=== PATIENT | female | born 1965 | race Caucasian/White ===

== ENCOUNTER 2020-07-19 11:07 | Outpatient (REF) | payer OTHER, SELFPAY ==
--- NOTE | 2020-07-19 11:15 | CT_ITS ---
EXAMINATION: CT HEAD WITHOUT CONTRAST CLINICAL INFORMATION: Daily persistent headache. COMPARISON: CT scan of the head 02/09/2017. TECHNIQUE: Contiguous axial imaging was performed from the skull base to vertex without intravenous administration of contrast. This CT examination was performed using dose optimization techniques as appropriate, variously including the following: *Automated exposure control *Adjustment of mA and/or kV according to patient size (this includes techniques or standardized protocols for targeted exams where dose is matched to indication/reason for exam; i.e. extremities or head) *Use of iterative reconstruction technique DLP: 788 mGy-cm FINDINGS: There is gliosis and encephalomalacia in the left external capsule/subinsular cortex, consistent with sequelae of prior left MCA infarct. There is a lacunar infarct in the left basal ganglia which has evolved compared to prior imaging. There is ex-vacuo dilatation of the anterior body and anterior horn of the left lateral ventricle adjacent to the chronic ischemic areas. There is no evidence of acute intracranial hemorrhage or territorial infarction. No abnormal mass effect or midline shift is seen. Elsewhere, zhu to white matter differentiation is well preserved. No extra-axial fluid collections are identified. There has been interval increase in prominence of the sulci in the bilateral cerebellar hemispheres and vermis. The osseous structures and soft tissues are normal. The mastoid air cells and paranasal sinuses are well aerated. IMPRESSION: 1. There are no acute bleeds or territorial infarcts. No masses are demonstrated. The paranasal sinuses and mastoid air cells are well-aerated. There has been further volume loss in the cerebellar hemispheres and vermis. 2. There are sequelae of a left MCA territory infarct with gliosis and encephalomalacia in the left basal ganglia and subinsular cortex, with ex vacuo dilatation of the body of the left lateral ventricle.
== END 2020-07-19 11:08 | disposition home or self-care (01) ==
LOC: HO.CT 11:07
PROVIDERS: PCP Internal Medicine; Visit Provider Internal Medicine
DX: G44.52 New daily persistent headache (NDPH) (principal); Z86.73 Personal history of transient ischemic attack (TIA), and cerebral infarction without residual deficits
CPT/HCPCS: 70450

== ENCOUNTER → 2020-07-27 10:32 | Outpatient (BNVA) | payer OTHER, SELFPAY | PROVIDERS: PCP Internal Medicine; Visit Provider Internal Medicine | DX: Z95.2 Presence of prosthetic heart valve (principal); Z51.81 Encounter for therapeutic drug level monitoring; Z79.01 Long term (current) use of anticoagulants | CPT/HCPCS: 85610 ==

== ENCOUNTER → 2020-08-11 11:10 | Outpatient (BNVA) | payer OTHER, SELFPAY | PROVIDERS: PCP Internal Medicine; Referring Provider Internal Medicine; Visit Provider Student in an Organized Health Care Education/Training Program | DX: R76.8 Other specified abnormal immunological findings in serum (principal); Z82.61 Family history of arthritis | CPT/HCPCS: 99202 ==

== ENCOUNTER 2020-08-23 10:35 | Outpatient (REF) | payer OTHER, SELFPAY ==
--- NOTE | 2020-08-23 11:03 | XR_ITS ---
EXAMINATION: XR LUMBOSACRAL SPINE CLINICAL INFORMATION: Abnormal serology COMPARISON: None TECHNIQUE: Three views of the lumbosacral spine. FINDINGS: Mild leftward curvature of the spine. On the lateral projection, there is normal alignment. The lumbar vertebral body heights are maintained. No evidence of compression deformities. Moderate disc degeneration at L5/S1. There are endplate osteophytes at multiple levels in the lumbar spine. Multilevel facet degeneration. Visualized sacrum is intact. SI joints are intact. There are disc degenerative changes in the visualized lower thoracic spine. Apparent superior endplate depression of T12, with sclerosis, and adjacent disc degenerative changes, suboptimally evaluated at the upper margin in the [id number]. XR/XR lumbar spine 2-3V IMPRESSION: Lumbar spondylosis. Moderate disc degeneration at L5-S1. No evidence of acute osseous abnormality. Disc degenerative changes in the visualized lower thoracic spine. Question superior endplate depression of T12, suboptimally evaluated. Dedicated thoracic spine views for further evaluation as clinically warranted.
--- NOTE | 2020-08-23 11:03 | XR_ITS ---
EXAMINATION: X-RAY BILATERAL HANDS CLINICAL INFORMATION: Abnormal immunologic findings in the serum. COMPARISON: None TECHNIQUE: Right hand 3 views. Left hand 4 views. FINDINGS: In bilateral hands, there is normal alignment. Joint spaces are maintained. No fracture or dislocation. Questionable subtle erosion of the distal ulnar aspect of the right 3rd middle phalanx. No abnormal soft tissue calcification. Carpal row alignment is maintained. XR/XR hand wrist RT IMPRESSION: Questionable subtle erosion in the distal aspect right 3rd middle phalanx. Otherwise unremarkable study.
--- NOTE | 2020-08-23 11:03 | XR_ITS ---
EXAMINATION: X-RAY BILATERAL HANDS CLINICAL INFORMATION: Abnormal immunologic findings in the serum. COMPARISON: None TECHNIQUE: Right hand 3 views. Left hand 4 views. FINDINGS: In bilateral hands, there is normal alignment. Joint spaces are maintained. No fracture or dislocation. Questionable subtle erosion of the distal ulnar aspect of the right 3rd middle phalanx. No abnormal soft tissue calcification. Carpal row alignment is maintained. XR/XR hand wrist LT IMPRESSION: Questionable subtle erosion in the distal aspect right 3rd middle phalanx. Otherwise unremarkable study.
[2020-08-23 12:25] LABS: Rheumatoid Factor < 15.0 IU/mL (<15.0)
[2020-08-23 13:00] LABS: Erythrocyte Sedimentation Rate 27 MM/HR (0-20)
[2020-08-24 09:37] LABS: Thyroglobulin Antibodies <1 IU/mL (< or = 1); Thyroid Peroxidase Antibodies <1 IU/mL (<9)
[2020-08-24 12:21] LABS: Complement C3 160 mg/dL (83-193)
[2020-08-24 12:47] LABS: Anti DNA DS Antibody <1 IU/mL; Antibody to SS-A Antigen <1.0 NEG AI (<1.0 NEG); Antibody to SS-B Antigen <1.0 NEG AI (<1.0 NEG); SM/Ribonucleoprotein Ab <1.0 NEG AI (<1.0 NEG); Smith Protein <1.0 NEG AI (<1.0 NEG)
[2020-08-25 00:27] LABS: Anti Nuclear Antibody Screen POSITIVE (NEGATIVE)
[2020-08-25 14:47] LABS: Cyclic Citrullinated Peptide 18 UNITS
== END 2020-08-23 10:36 | disposition home or self-care (01) ==
LOC: HO.LAB 10:35
PROVIDERS: PCP Internal Medicine; Visit Provider Student in an Organized Health Care Education/Training Program
DX: R76.8 Other specified abnormal immunological findings in serum (principal)
CPT/HCPCS: 36415; 72100; 73110; 73130; 85652; 86038; 86039; 86140; 86160; 86200; 86225; 86235; 86376; 86431; 86800

== ENCOUNTER → 2020-08-24 10:33 | Outpatient (BNVA) | payer OTHER, SELFPAY | PROVIDERS: PCP Internal Medicine; Visit Provider Internal Medicine | DX: Z95.2 Presence of prosthetic heart valve (principal); Z51.81 Encounter for therapeutic drug level monitoring; Z79.01 Long term (current) use of anticoagulants | CPT/HCPCS: 85610; 99211 ==

== ENCOUNTER → 2020-08-30 10:10 | Outpatient (BNVA) | payer OTHER, SELFPAY | PROVIDERS: PCP Internal Medicine; Visit Provider Anesthesiology | DX: M79.7 Fibromyalgia (principal); R76.8 Other specified abnormal immunological findings in serum; Z86.73 Personal history of transient ischemic attack (TIA), and cerebral infarction without residual deficits; Z95.2 Presence of prosthetic heart valve; Z79.01 Long term (current) use of anticoagulants; Z79.899 Other long term (current) drug therapy | CPT/HCPCS: 99202 ==

== ENCOUNTER 2020-09-18 10:45 | Outpatient (REF) | payer OTHER, SELFPAY ==
--- NOTE | 2020-09-18 12:13 | XR_ITS ---
EXAMINATION: XR CHEST CLINICAL INFORMATION: Heart failure COMPARISON: Previous chest x-rays most recent October 2018 TECHNIQUE: 2 views of the chest were obtained. FINDINGS: The cardiac silhouette does not appear enlarged. There are median sternotomy wires and prosthetic aortic valve ring. Hilar and mediastinal contours are unremarkable. The lungs are clear. There is no pleural effusion. There are degenerative changes of the spine. XR/XR chest 2V IMPRESSION: Stable postsurgical changes. No evidence of CHF.
== END 2020-09-18 10:46 | disposition home or self-care (01) ==
LOC: HO.XRAY 10:45
PROVIDERS: Absent Provider Student in an Organized Health Care Education/Training Program; PCP Internal Medicine; Referring Provider Internal Medicine; Visit Provider Internal Medicine Cardiovascular Disease
DX: I50.30 Unspecified diastolic (congestive) heart failure (principal); I11.0 Hypertensive heart disease with heart failure; T82.09XA Other mechanical complication of heart valve prosthesis, initial encounter; Z95.2 Presence of prosthetic heart valve
CPT/HCPCS: 71046; 93005; 99212

== ENCOUNTER → 2020-09-21 10:05 | Outpatient (BNVA) | payer OTHER, SELFPAY | PROVIDERS: PCP Internal Medicine; Referring Provider Internal Medicine; Visit Provider Internal Medicine | DX: Z95.2 Presence of prosthetic heart valve (principal); Z51.81 Encounter for therapeutic drug level monitoring; Z79.01 Long term (current) use of anticoagulants | CPT/HCPCS: 85610; 99211 ==

== ENCOUNTER 2020-09-21 12:45 | Emergency (ER) | payer OTHER, SELFPAY ==
[2020-09-21 14:00] VITALS: BP 139/66; PULSE 61; RESP 16; TEMP 36.6; O2SAT 98
[2020-09-21 14:21] VITALS: BP 141/67; PULSE 67; RESP 18; TEMP 36.6; O2SAT 97; BMI 32.9
--- NOTE | 2020-09-21 14:29 | ED.ABDPAIN ---
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 like sensation in the mid abdomen down to the periumbilical region. There is no associated fever, chest pain, shortness of breath no nausea vomiting or diarrhea. She did call her primary care doctor and was advised to come to emergency room for further evaluation. Last INR today was 2.1. MD elicited complaint: abdominal pain Pertinent past history: none Onset (ago): week(s) (2) Pain Consistency: constant Severity: moderate Quality: aching Radiation: none Exacerbating factors: nothing Relieving factors: nothing Related Data Home Medications Medication Instructions Recorded Confirmed atorvastatin 80 mg tablet 80 mg PO DAILY 07/10/20 09/21/20 bupropion HCl 100 mg tablet,12 hr 0 mg PO 07/10/20 09/21/20 sustained-release cholecalciferol (vitamin D3) 125 125 mcg PO DAILY 07/10/20 09/21/20 mcg (5,000 unit) capsule cyanocobalamin (vitamin B-12) 1,000 mcg PO DAILY 07/10/20 09/21/20 1,000 mcg tablet ferrous sulfate 325 mg (65 mg 325 mg PO DAILY 07/10/20 09/21/20 iron) tablet furosemide 40 mg tablet 40 mg PO DAILY 07/10/20 09/21/20 lisinopril 10 mg tablet 10 mg PO DAILY 07/10/20 09/21/20 metoprolol succinate 100 mg 100 mg PO DAILY 07/10/20 09/21/20 tablet,extended release 24 hr sumatriptan succinate 50 mg tablet 0 mg PO 07/10/20 09/21/20 Previous Rx's Medication Instructions Recorded hydralazine 10 mg tablet 10 mg PO TID 90 Days #270 tab 07/16/20 nystatin 100,000 unit/gram topical 1 applic TOPICAL DAILY 30 Days #30 07/16/20 cream g blood sugar diagnostic #70 ea 07/18/20 aspirin 81 mg tablet,delayed 81 mg PO DAILY 90 Days #90 tab 07/21/20 release warfarin 2.5 mg tablet 2.5 mg PO DAILY #90 tab 07/27/20 lancets 28 gauge #100 ea 07/28/20 lancets 28 gauge 1 gauge TOPICAL BID 90 Days #200 08/08/20 cap metformin 500 mg tablet 500 mg PO BID #180 tab 08/14/20 albuterol sulfate 90 mcg/actuation 2 puff INHALATION Q4-6H PRN #18 g 08/26/20 aerosol inhaler doxepin 100 mg capsule 100 mg PO BEDTIME #90 cap 08/26/20 gabapentin 800 mg tablet 800 mg PO TID 30 Days #90 tab 08/30/20 hydroxyzine HCl 25 mg tablet 25 mg PO BID PRN #60 tab 08/30/20 clonazepam 1 mg tablet 1 mg PO BID PRN #60 tab 09/09/20 escitalopram oxalate 10 mg tablet 10 mg PO DAILY #90 tab 09/15/20 polyethylene glycol 3350 [Miralax] 17 g PO DAILY PRN #238 g 09/21/20 Allergies Allergy/AdvReac Type Severity Reaction Status Date / Time No Known Allergies Allergy Verified 09/21/20 11:36 [No Known Allergies*] Review of Systems Review of Systems Constitutional: No Weight loss, No Fever, No Chills, No Night Sweats, No Fatigue, No Malaise ENT/Mouth: No Hearing loss, No Ear Pain, No Nasal Congestion, No Sinus Pain, No Hoarseness, No sore throat, No Rhinorrhea, No Swallowing Difficulty Eyes: No Eye Pain, No Swelling, No Redness, No Foreign Body, No Discharge, No Vision Changes Cardiovascular: No Chest Pain, No SOB, No Dyspnea on Exertion, No Orthopnea, No Edema, No Palpitations Respiratory: No Cough, No Sputum, No Wheezing, No Smoke Exposure, No Dyspnea Gastrointestinal: No Nausea, No Vomiting, No Diarrhea, No Constipation, + abdominal Pain as noted in HPI, No Hematochezia, No Melena Genitourinary: no irregular bleeding, No Dysuria, No Urinary Frequency, No Hematuria, No Urinary Incontinence, No Urgency, No Flank Pain, No Urinary Flow Changes, No Hesitancy Musculoskeletal: No joint pain, No Myalgias, No Joint Swelling Skin: No Skin Lesions, No rash Neuro: No Weakness, No Numbness, No Paresthesias, No Loss of Consciousness, No Dizziness, No Headache Psych: No Social Issues Heme/Lymph: No Bruising, No Bleeding,No Lymphadenopathy Endocrine: No Polyuria, No Polydipsia, No Temperature Intolerance Yes all other systems are reviewed and are negative Physical Exam Vital Signs: Vital Signs: Last Vital Signs Temp 98 F 09/21/20 17:04 Pulse 72 09/21/20 17:04 Resp 14 09/21/20 17:04 BP 133/69 09/21/20 17:04 Pulse Ox 99 09/21/20 17:04 Body Mass Index 32.9 Reviewed Const: General: cooperative and healthy appearing; No acute distress or intoxicated appearing Nutritional Appearance: average body habitus Orientation/consciousness: patient oriented x3 HENMT: Head: Yes normal to inspection Ears: hearing grossly normal bilaterally Eyes: General: appearance normal, both eyes and all related structures Visual Goldsmtih: normal visual goldsmith by confrontation Neck: Neck: Yes normal visual inspection and No tender Thyroid: Thyroid normal Chest: Chest palpation & inspection: normal inspection of the chest Breast/axilla inspection: normal inspection of the breasts Resp: Effort & Inspection: normal respiratory effort Auscultation: clear to auscultation bilaterally Cardio: Jugular venous distension: no JVD Rhythm: regular rhythm Heart sounds: S1 normal heart sound present and S2 normal heart sound present GI: Inspection: Yes normal to inspection Palpation (GI): Firmness to palpation present (GI), Tenderness to palpation present (GI), Palpable mass present (Superior to the umbilicus bulging mass she flex c/w fat containing hernia) and no pulsatile masses Percussion: Yes normal to percussion Auscultation: normal bowel sounds : General: Yes no CVA tenderness Back/Spine/Pelvis: Back: no CVA tenderness Skin: General skin exam: no rashes or lesions noted Neuro: General: patient oriented x3 Extrem: General: Yes normal to inspection Course Course Course Narrative: Labs overall stable. No leukocytosis. H&H at baseline. Chemistries without significant derangement. UA noninfected. CT of the abdomen pelvis shows moderate stool burden otherwise no acute intra-abdominal process/obstructive/infectious pathology. Patient in fact has been eating CHAINels without my knowledge. Her exam remains stable. Will be discharged home with prescription of MiraLax/follow up with GP. Patient agreeable. Stable for discharge. MDM - Abdominal Pain Differential Diagnosis Differential diagnosis: Likely abdominal pain (Abdominal hernia, strangulated/incarcerated hernia ), constipation and small bowel obstruction; Unlikely aortic dissection, acute appendicitis, bowel perforation, calculus of kidney, diverticulitis, mesenteric ischemia, pancreatitis, peptic ulcer disease and renal colic Medical Records Attestation: I reviewed the patient's medical records. Lab Data Attestation: I reviewed the patient's lab results. Result diagrams: 09/21/20 15:07 09/21/20 15:06 Labs: Lab Results 09/21/20 09/21/20 Range/Units 15:06 15:07 WBC 10.5 (4.8-10.8) X10*3/uL RBC 3.97 L (4.20-5.50) X10*6/uL Hgb 11.7 L (12.0-16.0) g/dl Hct 36.2 L (37-47) % MCV 91.2 (80-98) fL MCH 29.5 (27.0-33.0) pg MCHC 32.3 (31.0-35.0) g/dl RDW 13.5 (11.0-16.0) % Plt Count 374 (160-400) X10*3/uL MPV 10.0 (9.4-12.3) fL Immature Gran % (Auto) 0.3 (0.0-0.4) % Neut % (Auto) 63.4 (45-73) % Lymph % (Auto) 26.4 (20-40) % Boundary % (Auto) 6.2 (2-11) % Eos % (Auto) 3.1 (0-4) % Baso % (Auto) 0.6 (0-2) % Lymph # (Auto) 2.8 (1.2-4.9) X10*3/uL Boundary # (Auto) 0.7 (0.1-1.2) X10*3/uL Eos # (Auto) 0.3 (0.0-0.4) X10*3/uL Baso # (Auto) 0.1 (0.0-0.2) X10*3/uL Abs Immat Gran (auto) 0.03 (0.00-0.03) X10*3/uL Absolute Neuts (auto) 6.7 (2.0-8.3) X10*3/uL Absolute Nucleated RBC 0.000 (0.0-0.012) X10*3/uL Nucleated RBC % (auto) 0.0 (0.0-0.2) /100WBC Sodium 137 (135-145) mmol/L Potassium 4.5 (3.3-5.1) mmol/l Chloride 98 (96-108) mmol/L Carbon Dioxide 25 (22-29) mmol/L Anion Gap 19 (12-20) BUN 19 H (9-16) mg/dL Creatinine 1.33 (0.5-1.4) mg/dL Estim Creat Clear Calc 49.7 Estimated GFR 42 Random Glucose 124 H (60-115) mg/dL Calcium 9.7 (8.4-10.2) mg/dL Total Bilirubin 0.5 (0.0-1.0) mg/dL AST 38 H (5-31) U/L ALT 50 H (0-31) U/L Alkaline Phosphatase 111 (39-117) U/L Total Protein 7.7 (6.5-8.0) g/dL Albumin 4.5 (3.5-5.0) g/dL Imaging Data Abdominal/pelvis CT with IV contrast: Radiologist's impression: [place] [id number] CT Scan Report Signed Patient: Nomi Smith#: [id number] : 1965Acct:[id number] Age/Sex: 55 / FADM Date: 09/21/20 Loc: HO.ED Attending Dr: Ordering Physician: Marco Randhawa NP Date of Service: 09/21/20 Procedure(s): CT abdomen pelvis w con Accession Number(s): [id number] cc: Marco Randhawa NP~ EXAMINATION: CT ABDOMEN AND PELVIS WITH CONTRAST CLINICAL INFORMATION: Pain COMPARISON: 04/13/2020 and 10/19/2016 TECHNIQUE: Multidetector volumetric images were obtained from the superior aspect of the liver through the pubic symphysis following administration 85 mL of Omnipaque 350 intravenous contrast. Sagittal and coronal reformatted images were obtained on the technologist's workstation. Oral contrast: No This CT examination was performed using dose optimization techniques as appropriate, variously including the following: *Automated exposure control *Adjustment of mA and/or kV according to patient size (this includes techniques or standardized protocols for targeted exams where dose is matched to indication/reason for exam; i.e. extremities or head) *Use of iterative reconstruction technique DLP: 625 mGy-cm FINDINGS: LUNG BASES: The visualized lung bases are unremarkable. LIVER, GALLBLADDER, AND BILIARY TREE: The liver is normal in size, shape, and attenuation. No focal hepatic lesion or biliary ductal dilatation is present. Gallbladder is surgically absent. PANCREAS: Unremarkable. SPLEEN: Unremarkable. ADRENAL GLANDS: The small 1 cm left adrenal adenoma is unchanged from the prior CT. A subtle subcentimeter fat density 5 mm adrenal myelolipoma is suspected at the right adrenal gland. KIDNEYS AND URETERS: As noted previously, there is abnormal atrophy of the left kidney with associated cortical thinning diffusely. Multiple subcentimeter renal cysts are identified. At the lateral aspect of the interpolar region of the left kidney, there is a 7 mm fat density lesion which is most compatible with a small angiomyolipoma. No hydronephrosis or nephrolithiasis. Ureters normal in course and caliber. BLADDER: Unremarkable. GASTROINTESTINAL TRACT: There is a moderate volume stool throughout the colon. No bowel wall thickening, surrounding inflammatory changes, or bowel dilatation are identified. Appendix is normal. No intraperitoneal free fluid or free air. ABDOMINAL WALL: No significant hernia is appreciated. LYMPH NODES: Normal. VASCULAR: Vascular calcifications are again seen within the abdominal aorta and iliac arteries. No aneurysmal dilatation. PELVIC VISCERA: The uterus is retroverted. No focal abnormalities are identified. No adnexal lesions are appreciated. OSSEOUS STRUCTURES: There is mild left convex thoracic scoliosis with multilevel degenerative spondylosis, most notable at L5-S1. Multiple ossific posterior disc protrusions are evident in the lumbar spine, potentially contribute to central canal stenoses. Mild osteoarthritis in the hips and SI joints. No acute osseous findings. CT/CT abdomen pelvis w con IMPRESSION: 1. No acute intra-abdominal or intrapelvic abnormalities are identified. 2. Unchanged 1 cm left adrenal adenoma. 3. Left renal atrophy, unchanged. No acute renal abnormalities. Unchanged 7 mm left renal angiomyolipoma. 4. Moderate amount of stool throughout the colon. Dictated By:CHON DELEON MD Signed By:<Electronically signed by CHON DELEON MD in OV>09/21/20 1715 DD/ 1428 TD/TT: Staff Air Tactical Officer: HOLGER Discharge Plan Discharge Clinical Impression: Constipation Patient Disposition: Home, Self-Care Instructions: Constipation (ED) Prescriptions: New polyethylene glycol 3350 [Miralax] 17 gram/dose powder 17 g PO DAILY PRN (Reason: constipation) Qty: 238 RF: 0 No Action nystatin 100,000 unit/gram cream 1 applic topical DAILY 30 Days Qty: 30 RF: 1 hydralazine 10 mg tablet 10 mg PO TID 90 Days Qty: 270 RF: 3 (DME) blood sugar diagnostic Strip See Rx Instructions strip Not Applicable BID Qty: 70 RF: 11 aspirin [Adult Low Dose Aspirin] 81 mg tablet,delayed release (DR/EC) 81 mg PO DAILY 90 Days Qty: 90 RF: 0 (DME) lancets [FreeStyle Lancets] 28 gauge misc See Rx Instructions .ROUTE .MEDSUPPLY Qty: 100 RF: 0 lancets [FreeStyle Lancets] 28 gauge misc 1 gauge topical BID 90 Days Qty: 200 RF: 4 metformin 500 mg tablet 500 mg PO BID Qty: 180 RF: 1 doxepin 100 mg capsule 100 mg PO BEDTIME Qty: 90 RF: 1 albuterol sulfate 90 mcg/actuation HFA aerosol inhaler 2 puff inhalation Q4-6H PRN (Reason: shortness of breath or wheezing) Qty: 18 RF: 0 clonazepam 1 mg tablet 1 mg PO BID PRN (Reason: anxiety) Qty: 60 RF: 0 escitalopram oxalate 10 mg tablet 10 mg PO DAILY Qty: 90 RF: 1 gabapentin 800 mg tablet 800 mg PO TID 30 Days Qty: 90 RF: 12 hydroxyzine HCl 25 mg tablet 25 mg PO BID PRN (Reason: itching) Qty: 60 RF: 5 atorvastatin 80 mg tablet 80 mg PO DAILY RF: 0 furosemide 40 mg tablet 40 mg PO DAILY RF: 0 metoprolol succinate 100 mg tablet extended release 24 hr 100 mg PO DAILY RF: 0 sumatriptan succinate 50 mg tablet 0 mg PO RF: 0 bupropion HCl 100 mg tablet sustained-release 12 hr 0 mg PO RF: 0 lisinopril 10 mg tablet 10 mg PO DAILY RF: 0 ferrous sulfate 325 mg (65 mg iron) tablet 325 mg PO DAILY RF: 0 cholecalciferol (vitamin D3) 125 mcg (5,000 unit) capsule 125 mcg PO DAILY RF: 0 cyanocobalamin (vitamin B-12) 1,000 mcg tablet 1,000 mcg PO DAILY RF: 0 warfarin 2.5 mg tablet 2.5 mg PO DAILY Qty: 90 RF: 0 Referrals: Sonja Freeman MD [Primary Care Provider] - 1 week [facility] Past Medical History Medical History (HFpEF) heart failure with preserved ejection fraction SONJA positive Anemia of chronic disease CVA (cerebral vascular accident) Diabetes mellitus Essential hypertension Fibromyalgia Fibromyalgia Intertrigo Long-term use of aspirin therapy Mixed hyperlipidemia Prosthetic valve dysfunction Secondary hyperparathyroidism Surgical History Heart valve replaced S/P AVR Family History Family History Father CVD (cardiovascular disease) Mother Diabetes HTN (hypertension) Sister Stomach cancer Social History Social History Household Members: Family Alcohol intake: never Smoking Status: Former smoker Use of substances other than those prescribed or required for medical reasons: No Advance Directives: No Advance Directives Information Provided: Yes
[2020-09-21 15:12] LABS: MANUAL DIFF FLAG NO
[2020-09-21 15:16] LABS: Basophils Absolute Auto 0.1 X10*3/uL (0.0-0.2); Basophils Percent Auto 0.6 % (0-2); Eosinophils Absolute Auto 0.3 X10*3/uL (0.0-0.4); Eosinophils Percent Auto 3.1 % (0-4); Hematocrit 36.2 % (37-47); Hemoglobin 11.7 g/dl (12.0-16.0); Imm Gran Abs Auto 0.03 X10*3/uL (0.00-0.03); Imm Gran Pct Auto 0.3 % (0.0-0.4); Lymphocytes Absolute Auto 2.8 X10*3/uL (1.2-4.9); Lymphocytes Percent Auto 26.4 % (20-40); Mean Corpuscular HGB Conc 32.3 g/dl (31.0-35.0); Mean Corpuscular Hemoglobin 29.5 pg (27.0-33.0); Mean Corpuscular Volume 91.2 fL (80-98); Monocytes Absolute Auto 0.7 X10*3/uL (0.1-1.2); Monocytes Percent Auto 6.2 % (2-11); Neutrophils Absolute Auto 6.7 X10*3/uL (2.0-8.3); Neutrophils Percent Auto 63.4 % (45-73); Platelet Count 374 X10*3/uL (160-400); Red Blood Count 3.97 X10*6/uL (4.20-5.50); Red Cell Distribution Width 13.5 % (11.0-16.0); White Blood Count 10.5 X10*3/uL (4.8-10.8)
[2020-09-21] MEDS: 0.9 % Sodium Chloride 1,000 ML 999 ML IV (15:33)
[2020-09-21 15:46] LABS: Alanine Aminotransferase 50 U/L (0-31); Albumin Level 4.5 g/dL (3.5-5.0); Alkaline Phosphatase 111 U/L (39-117); Anion Gap 19 (12-20); Aspartate Amino Transferase 38 U/L (5-31); Bilirubin Total 0.5 mg/dL (0.0-1.0); Blood Urea Nitrogen 19 mg/dL (9-16); Calcium 9.7 mg/dL (8.4-10.2); Carbon Dioxide 25 mmol/L (22-29); Chloride 98 mmol/L (96-108); Creatinine Clr Calc Pharmacy 49.7; Estimated Glomerular Filt Rate 42; Glucose Random 124 mg/dL (60-115); Potassium 4.5 mmol/l (3.3-5.1); Sodium 137 mmol/L (135-145); Total Protein 7.7 g/dL (6.5-8.0)
[2020-09-21] MEDS: iohexoL 350 MG/ML 100 ML INFUS..BTL IV (16:47)
[2020-09-21 17:04] VITALS: BP 133/69; PULSE 72; RESP 14; TEMP 36.6; O2SAT 99
[2020-09-21 17:43] LABS: Glucose Urine UA NEG (NEG); Leukocyte Esterase Urine NEG (NEG); Nitrite Urine NEG (NEG); Specific Gravity - Urine 1.015 (1.005-1.025); Urine Blood NEG (NEG); Urine Ketones NEG (NEG); Urine Protein NEG (NEG-TRACE)
[2020-09-21 17:44] LABS: Color Urine YELLOW
[2020-09-21 17:45] LABS: Appearance Urine CLEAR
[2020-09-21 17:54] LABS: Bacteria Urine TRACE /LPF; RBC Urine 0 /HPF (0); Squamous Epithelial Cell Urine 1+ /LPF; WBC Urine 0 /HPF (0-4)
== END 2020-09-21 18:22 | disposition home or self-care (01) ==
PROVIDERS: Nurse Practitioner Primary Care; Emergency Provider Internal Medicine; PCP Internal Medicine
DX: K59.00 Constipation, unspecified (principal); E11.9 Type 2 diabetes mellitus without complications; I10 Essential (primary) hypertension; Z79.82 Long term (current) use of aspirin
CPT/HCPCS: 36415; 74177; 80053; 81001; 85025; 99284; Q9967

== ENCOUNTER → 2020-10-18 09:27 | Outpatient (REF) | payer OTHER, SELFPAY ==
--- NOTE | 2020-10-18 09:30 | CA_ITS ---
Transthoracic Echocardiogram Patient (Last, First, Middle): Nomi Smith, Gender: Female Date of : 1965 Age: 55 Procedure Date: 10/18/2020 Procedure Type: Transthoracic Echocardiogram Location: OP Height: 160.02 cm Weight: 83.01 kg BSA: 1.86 m2 Heart Rate: bpm BP: 128 / 80 mmHg Financial Sales Manager: Referring MD: Mirza Fox MD Dress Shoe Inspector: Mirza Fox MD Symptoms: I50.30 - Unspecified diastolic (congestive) heart failure Study Quality: Technically Difficult ECG Rhythm: Sinus Conclusions: - 1. Normal LV systolic function with mild LVH with pseudonormal filling pattern 2. Mechanical aortic prosthesis in place with evidence of patient prosthesis mismatch with mean gradient of 32 mm of mercury 3. Normal RV systolic pressure Findings Left Ventricle Normal left ventricular size and systolic function. There is mildly increased left ventricular wall thickness. The visually estimated ejection fraction is between 55-60%. Spectral Doppler is indicative of a pseudonormal filling pattern. E/E prime ratio is between 8 and 15 consistent with indeterminate filling pressures. Right Ventricle The right ventricle was not well visualized. Atria The left atrium is mildly dilated. Interatrial shunt cannot be excluded. The right atrium was not well visualized. Aortic Valve A mechanical prosthetic aortic valve is present. The prosthetic aortic valve appears to be functioning abnormally. The aortic valve was not well visualized. The peak aortic gradient is 55 mmHg.The mean gradient is 32 mmHg. Calculated aortic ejection time and it 81 milliseconds which is within normal limits. Elevated gradients most consistent with patient prosthesis mismatch Mitral Valve The mitral valve was not well visualized. There is trace mitral valve regurgitation. There is no mitral valve stenosis. Pulmonic Valve The pulmonic valve was not well visualized. Tricuspid Valve The tricuspid valve was not well visualized. There is trace tricuspid valve regurgitation. The right ventricular systolic pressure is normal. The right ventricular systolic pressure is 25 mmHg. Normal right atrial pressure. There is no evidence of pulmonary hypertension. Great Vessels The aorta was not well visualized. The pulmonary artery was not well visualized. Venous The inferior vena cava is normal in size and collapses greater than 50% with inspiration. Pericardium/Pleural The pericardium was not well visualized. Prior Study Comparison No significant change compared to prior study. Measurements 2D Linear Measurements IVSd: 1.24 0.6-0.9/0.6-1.0 cm LVIDd: 4.04 3.9-5.3/4.2-5.9 cm LVIDd Index: 2.17 2.4-3.2/2.2-3.1 cm/m2 LVIDs: 2.63 2.0-3.6 cm LVPWd: 1.21 0.7-1.1 cm Ao Root: 2.40 2.1-3.5 cm LA Diam: 3.80 2.7-3.8/3.0-4.0 cm LAIDs Index: 2.04 1.5-2.3 cm/m2 LV Mass: 215.72 67-162/88-224 g LV Mass Index: 115.98 43-95/49-115 g/m2 LVOT Diam: 1.90 3.0+(-)1.3 cm 2D Systolic Function EF 4C: 62.70 >55% EF 2C: 55.30 >55% EF BiP: 60.50 >55% Mitral Valve MV Pk E: 0.71 MV PK A: 0.75 MV Decel Time: 243.00 E/A: 0.90 E'Lateral: 9.48 E'Medial: 7.06 E/E' Med: 10.10 E/E' Lat: 7.50 PHT: 71.00 MVA PHT: 3.10 Decel Cascade: 2.93 Aortic Valve AoV Pk Andrew: 3.72 AoV Mn Andrew: 2.64 AoV VTI: 0.88 AoV Pk Grad: 55.00 Aov Mn Grad: 32.00 KHARI Cont.VTI: 0.96 LVOT LVOT Pk Andrew: 1.20 LVOT Mn Andrew: 0.86 LVOT VTI: 0.30 LVOT Pk Grad: 6.00 LVOT Mn Grad: 3.00 LVOT Diam: 1.90 LVOT Area: 2.84 Diastolic Function MV Pk E: 0.71 MV Pk A: 0.75 E/A: 0.90 E'Medial: 7.06 E/E' Med: 10.10 E' Laterial: 9.48 E/E' Lat: 7.50 Tricuspid Valve TR Pk Andrew: 2.35 TR Pk Grad: 22.00 RA Press: 3.00 RVSP: 25.00 Great Vessels Aorta Ao Root-2D: 2.40 2.0-3.7 cm Ao Asc: 2.60 2.1-3.4 cm Pulmonary Valve PV Pk Andrew: 1.25 Peak PV Grad: 6.00 Updated in Other Vendor System with Status of Final Mirza Fox MD electronically signed on 10/18/2020 3:21:25 PM with status of Final
== END ==
LOC: HO.CARD 09:27
PROVIDERS: Visit Provider Internal Medicine Cardiovascular Disease
DX: I50.30 Unspecified diastolic (congestive) heart failure (principal); T82.09XA Other mechanical complication of heart valve prosthesis, initial encounter; Z95.2 Presence of prosthetic heart valve; X58.XXXA Exposure to other specified factors, initial encounter
CPT/HCPCS: 93306

== ENCOUNTER → 2020-10-19 10:01 | Outpatient (BNVA) | payer OTHER, SELFPAY | PROVIDERS: PCP Internal Medicine; Visit Provider Internal Medicine | DX: Z95.2 Presence of prosthetic heart valve (principal); Z79.01 Long term (current) use of anticoagulants; Z51.81 Encounter for therapeutic drug level monitoring | CPT/HCPCS: 85610; 99211 ==

== ENCOUNTER → 2020-11-16 10:26 | Outpatient (BNVA) | payer OTHER, SELFPAY | PROVIDERS: PCP Internal Medicine; Visit Provider Internal Medicine | DX: Z95.2 Presence of prosthetic heart valve (principal); Z51.81 Encounter for therapeutic drug level monitoring; Z79.01 Long term (current) use of anticoagulants | CPT/HCPCS: 85610; 99211 ==

== ENCOUNTER → 2020-12-14 10:22 | Outpatient (BNVA) | payer OTHER, SELFPAY | PROVIDERS: PCP Internal Medicine; Visit Provider Internal Medicine | DX: Z95.2 Presence of prosthetic heart valve (principal); Z51.81 Encounter for therapeutic drug level monitoring; Z79.01 Long term (current) use of anticoagulants | CPT/HCPCS: 85610; 99211 ==

== ENCOUNTER → 2020-12-29 10:33 | Outpatient (BNVA) | payer OTHER, SELFPAY | PROVIDERS: PCP Internal Medicine; Visit Provider Internal Medicine | DX: Z95.2 Presence of prosthetic heart valve (principal); Z51.81 Encounter for therapeutic drug level monitoring; Z79.01 Long term (current) use of anticoagulants | CPT/HCPCS: 85610; 99211 ==

== ENCOUNTER → 2021-01-08 10:21 | Outpatient (BNVA) | payer OTHER, SELFPAY | PROVIDERS: PCP Internal Medicine; Visit Provider Internal Medicine | DX: Z95.2 Presence of prosthetic heart valve (principal); Z51.81 Encounter for therapeutic drug level monitoring; Z79.01 Long term (current) use of anticoagulants | CPT/HCPCS: 85610; 99211 ==

== ENCOUNTER → 2021-02-13 13:36 | Outpatient (BNVA) | payer OTHER, SELFPAY | PROVIDERS: PCP Internal Medicine; Visit Provider Internal Medicine | DX: Z95.2 Presence of prosthetic heart valve (principal); Z51.81 Encounter for therapeutic drug level monitoring; Z79.01 Long term (current) use of anticoagulants | CPT/HCPCS: 85610; 99211 ==

== ENCOUNTER → 2021-02-16 13:46 | Outpatient (BNVA) | payer OTHER, SELFPAY | PROVIDERS: PCP Internal Medicine; Visit Provider Internal Medicine | DX: Z95.2 Presence of prosthetic heart valve (principal); Z79.01 Long term (current) use of anticoagulants; Z51.81 Encounter for therapeutic drug level monitoring | CPT/HCPCS: 85610; 99211 ==

== ENCOUNTER → 2021-02-21 10:51 | Outpatient (BNVA) | payer OTHER, SELFPAY | PROVIDERS: PCP Internal Medicine; Visit Provider Internal Medicine | DX: Z95.2 Presence of prosthetic heart valve (principal); Z51.81 Encounter for therapeutic drug level monitoring; Z79.01 Long term (current) use of anticoagulants | CPT/HCPCS: 85610; 99211 ==

== ENCOUNTER → 2021-03-07 10:54 | Outpatient (BNVA) | payer OTHER, SELFPAY | PROVIDERS: PCP Internal Medicine; Visit Provider Internal Medicine | DX: Z95.2 Presence of prosthetic heart valve (principal); Z51.81 Encounter for therapeutic drug level monitoring; Z79.01 Long term (current) use of anticoagulants | CPT/HCPCS: 85610; 99211 ==

== ENCOUNTER → 2021-03-14 10:12 | Outpatient (BNVA) | payer OTHER, SELFPAY | PROVIDERS: PCP Internal Medicine; Visit Provider Internal Medicine | DX: Z95.2 Presence of prosthetic heart valve (principal); Z51.81 Encounter for therapeutic drug level monitoring; Z79.01 Long term (current) use of anticoagulants | CPT/HCPCS: 85610; 99211 ==

== ENCOUNTER → 2021-03-26 10:16 | Outpatient (BNVA) | payer OTHER, SELFPAY | PROVIDERS: PCP Internal Medicine; Referring Provider Internal Medicine; Visit Provider Internal Medicine Cardiovascular Disease | DX: I50.32 Chronic diastolic (congestive) heart failure (principal); R00.2 Palpitations; T82.09XA Other mechanical complication of heart valve prosthesis, initial encounter; Z95.2 Presence of prosthetic heart valve | CPT/HCPCS: 99212 ==

== ENCOUNTER → 2021-03-28 10:56 | Outpatient (BNVA) | payer OTHER, SELFPAY | PROVIDERS: PCP Internal Medicine; Visit Provider Internal Medicine | DX: Z95.2 Presence of prosthetic heart valve (principal); Z51.81 Encounter for therapeutic drug level monitoring; Z79.01 Long term (current) use of anticoagulants | CPT/HCPCS: 85610; 99211 ==

== ENCOUNTER → 2021-04-05 10:41 | Outpatient (BNVA) | payer OTHER, SELFPAY | PROVIDERS: PCP Internal Medicine; Visit Provider Internal Medicine | DX: Z95.2 Presence of prosthetic heart valve (principal); Z51.81 Encounter for therapeutic drug level monitoring; Z79.01 Long term (current) use of anticoagulants | CPT/HCPCS: 85610; 99211 ==

== ENCOUNTER → 2021-04-12 10:23 | Outpatient (BNVA) | payer OTHER, SELFPAY | PROVIDERS: PCP Internal Medicine; Visit Provider Internal Medicine | DX: Z95.2 Presence of prosthetic heart valve (principal); Z51.81 Encounter for therapeutic drug level monitoring; Z79.01 Long term (current) use of anticoagulants | CPT/HCPCS: 85610; 99211 ==

== ENCOUNTER → 2021-04-13 09:06 | Outpatient (REF) | payer OTHER, SELFPAY ==
--- NOTE | 2021-04-13 10:35 | ECG_ITS ---
Hook-up date: 2021-04-13 09:13:00 Duration: 47:06:00 Test Indications: PALPITATIONS Medications: [id number] QRS complexes 11 Ventricular ectopics which represent <1 % of total QRS comp. 10 Supraventricular ectopics which represent <1 % of total QRS comp. * Paced QRS complexs which represent % of total QRS comp. VENTRICULAR ECTOPY 11 Isolated 0 Bigeminal Cycles 0 Couplets 0 Runs 0 Beats in Runs * Beats LONGEST at * BPM at :: -- * Beats FASTEST at * BPM at :: -- SUPRAVENTRICULAR ECTOPY 10 Isolated 0 Couplets 0 Runs 0 Beats in Runs * Beats LONGEST at * BPM at :: -- * Beats FASTEST at * BPM at :: -- HEART RATES 49 MIN at 23:42:19 2021-04-14 67 AVG 110 MAX at 12:45:35 2021-04-14 LONGEST RR 1.3600 secs at 23:51:43 2021-04-14 S-T LEVELS Channel 1 - 128 mm at 09:13:00 2021-04-13 - 128 mm at 09:13:00 2021-04-13 Channel 2 - 128 mm at 09:13:00 2021-04-13 - 128 mm at 09:13:00 2021-04-13 Channel 3 - 128 mm at 02:83:21 -- - 128 mm at 02:83:21 Basic rhythm Normal sinus rhythm No long pause or profound bradycardia Rare ectopics No dangerous dysrhythm periods No diary submitted Referred By: Mirza Fox Overread By: MIRZA FOX MD
== END ==
LOC: HO.CARD 09:06
PROVIDERS: PCP Internal Medicine; Referring Provider Internal Medicine; Visit Provider Internal Medicine Cardiovascular Disease
DX: R00.2 Palpitations (principal)
CPT/HCPCS: 93226

== ENCOUNTER → 2021-04-26 11:03 | Outpatient (BNVA) | payer OTHER, SELFPAY | PROVIDERS: PCP Internal Medicine; Visit Provider Internal Medicine | DX: Z95.2 Presence of prosthetic heart valve (principal); Z51.81 Encounter for therapeutic drug level monitoring; Z79.01 Long term (current) use of anticoagulants | CPT/HCPCS: 85610; 99211 ==

== ENCOUNTER → 2021-05-10 10:35 | Outpatient (BNVA) | payer OTHER, SELFPAY | PROVIDERS: PCP Internal Medicine; Visit Provider Internal Medicine | DX: Z95.2 Presence of prosthetic heart valve (principal); Z51.81 Encounter for therapeutic drug level monitoring; Z79.01 Long term (current) use of anticoagulants | CPT/HCPCS: 85610; 99211 ==

== ENCOUNTER → 2021-05-18 11:01 | Outpatient (BNVA) | payer OTHER, SELFPAY | PROVIDERS: PCP Internal Medicine; Visit Provider Internal Medicine | DX: Z95.2 Presence of prosthetic heart valve (principal); Z51.81 Encounter for therapeutic drug level monitoring; Z79.01 Long term (current) use of anticoagulants | CPT/HCPCS: 85610; 99211 ==